=== PATIENT | female | born 1985 | race Caucasian/White ===

== ENCOUNTER 2018-08-23 09:16 | Emergency (ER) | payer BC ==
[2018-08-23 09:24] VITALS: BP 117/81
--- NOTE | 2018-08-23 09:50 | UC ---
Respiratory Complaint HPI - HPI Summary HPI Summary: Healthy 33 yo female; coughed and now has rib discomfort on the right. VSS; respiratory rate=18; pulse od=795%. Nurse's note: right sided rib pain following coughing. - History of Current Complaint Chief Complaint: UCGeneralIllness Stated Complaint: RIB PAIN Time Seen by Provider: 08/23/18 09:35 Hx Obtained From: Patient Hx Last Menstrual Period: 08/06/18 Onset/Duration: Sudden Onset Severity Initially: Moderate Pain Intensity: 8 Pain Scale Used: 0-10 Numeric - Risk Factors Pulmonary Embolism Risk Factors: Negative Cardiac Risk Factors: Negative Pseudomonas Risk Factors: Negative Tuberculosis Risk Factors: Negative - Allergies/Home Medications Allergies/Adverse Reactions: Allergies Allergy/AdvReac Type Severity Reaction Status Date / Time No Known Allergies Allergy Verified 08/23/18 09:25 Home Medications: Home Medications NK [No Home Medications Reported] 08/23/18 [History Confirmed 08/23/18] PMH/Surg Hx/FS Hx/Imm Hx Previously Healthy: Yes - Surgical History Surgical History: None - Family History Known Family History: Positive: None - Social History 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 Alcohol Use: Occasionally Substance Use Type: None Smoking Status (MU): Never Smoked Tobacco Review of Systems All Other Systems Reviewed And Are Negative: Yes Constitutional: Positive: Negative Skin: Positive: Negative Eyes: Positive: Negative ENT: Positive: Negative Respiratory: Positive: Cough, Other - pain over anterior right chest radiating to right Cardiovascular: Positive: Negative Gastrointestinal: Positive: Negative Genitourinary: Positive: Negative Motor: Positive: Negative Neurovascular: Positive: Negative Musculoskeletal: Positive: Negative Neurological: Positive: Negative Psychological: Positive: Negative Is Patient Immunocompromised?: Yes Physical Exam Triage Information Reviewed: Yes Vital Signs: Initial Vital Signs Temp 97.8 F 08/23/18 09:22 Pulse 74 08/23/18 09:22 Resp 16 08/23/18 09:22 BP 117/81 08/23/18 09:22 Pulse Ox 100 08/23/18 09:22 Vital Signs Reviewed: Yes Eye Exam: Normal ENT Exam: Normal Dental Exam: Normal Neck exam: Normal Neck: Positive: 1 Respiratory Exam: Normal Respiratory: Positive: Chest non-tender, Lungs clear, Normal breath sounds Cardiovascular Exam: Normal Cardiovascular: Positive: RRR, No Murmur, Pulses Normal Abdominal Exam: Normal Abdomen Description: Positive: Nontender, No Organomegaly, Soft Musculoskeletal Exam: Normal Neurological Exam: Normal Psychological Exam: Normal Skin Exam: Normal UC Diagnostic Evaluation - Laboratory O2 Sat by Pulse Oximetry: 100 - Radiology Radiology Interpretation Completed By: Radiologist - NO ACTIVE CARDIOPULMONARY DISEASE. Respiratory Course/Dx - Course Course Of Treatment: Healthy 33 yo female; coughed 2 weeks ago and now has rib discomfort on the right. VSS; respiratory rate=18; pulse qe=730%. x ray: no fracture or acute disease. Discussed costochondritis right parasternal, lower. Patient will use moist heat and anti-inflammatory medication. She is aware of signs and symptoms of pneumonia or pneumothorax. - Differential Dx/Diagnosis Differential Diagnosis/HQI/PQRI: Bronchitis, Lower Resp Infection, Pneumothorax , Other - costochondritis Provider Diagnosis: Costochondritis Discharge - Sign-Out/Discharge Documenting (check all that apply): Patient Departure All imaging exams completed and their final reports reviewed: Yes - Discharge Plan Condition: Stable Disposition: HOME Patient Education Materials: Costochondritis (ED) Referrals: Anna PALOMINO,Jaun Ta [Primary Care Provider] - Additional Instructions: WE DISCUSSED: You have injured your rib from coughing and you have costochondritis, inflammation of the joint that joins that rib to the sternum. You also have soft tissue injury to that area. You can take up to: 600mg ibuprofen and 1000mg aceteminophen, 3 times a day. Warm moist heat to the area in the morning to loosen the muscles. Ice for acute pain. Go to Ed for any trouble breathing or increased pain or temperature. Your x ray showed no abnormality. - Billing Disposition and Condition Condition: STABLE Disposition: Home
== END 2018-08-23 11:13 | disposition home or self-care (01) ==
LOC: UCEAST 09:16
DX: M94.0 Chondrocostal junction syndrome [Tietze] (principal)
CPT/HCPCS: 71046; 84702; 99211; G0463